=== PATIENT | female | born 1990 | race Caucasian/White ===

== ENCOUNTER 2017-07-20 15:38 | Emergency (ER) | payer MEDICAID, OTHER ==
[~2017-07-20] VITALS: Ht 165.1 cm; Wt 82.0 kg
[~2017-07-20 15:38] MED LIST: LOVA20TA2
[2017-07-20 16:19] VITALS: BP 130/89
[2017-07-20] MEDS ORDERED: FURO-152 PO (16:23)
== END 2017-07-20 21:50 | disposition left against medical advice (07) ==
LOC: ER 21:24
DX: Z53.21 Procedure and treatment not carried out due to patient leaving prior to being seen by health care provider (principal)